=== PATIENT | male | born 1925 ===

== ENCOUNTER 2017-02-07 03:36 | Outpatient (CLI) | payer MEDICARE, OTHER, BC ==
[2017-02-07 05:19] LABS: #Basophils 0.1 thou/uL (0.0-0.2); #Eosinphils 0.7 thou/uL (0.0-0.7); #Lymphocytes 2.4 thou/uL (1.20-3.40); #Monocytes 1.1 thou/uL (0.11-0.59); #Neutrophils 3.8 thou/uL (1.40-6.50); %Basophils 0.7 % (0.0-1.0); %Eosinophils 8.8 % (0.0-10.0); %Lymphocytes 30.2 % (21.0-51.0); %Monocytes 13.2 % (0.0-10.0); %Neutrophils 47.2 % (42.0-75.0); Hemoglobin 12.7 g/dL (14.0-18.0); Mean Corpuscular HGB CONC 32.4 g/dL (32.0-36.0); Mean Corpuscular Volume 89.5 fl (80.0-94.0); Mean Platelet Volume 9.6 fL (7.4-10.4); Platelet Count 157 thou/uL (130-400); RBC Distribution Width 13.6 % (11.5-14.5); Red Blood Cell (RBC) Count 4.38 mill/uL (4.70-6.10)
== END 2017-02-07 03:37 | disposition home or self-care (01) ==
LOC: BURLABSP 03:36
PROVIDERS: ATTEND Clinical Nurse Specialist Medical-Surgical
DX: J44.9 Chronic obstructive pulmonary disease, unspecified (principal); I10 Essential (primary) hypertension
CPT/HCPCS: 36415; 85025